=== PATIENT | female | born 1985 | race American Indian/Alaskan Native ===

== ENCOUNTER 2019-05-09 10:09 | Emergency (ER) | payer OTHER ==
[2019-05-09] MEDS ORDERED: NACL 0.9% 1000 ML 2,000 ML IV ONE (10:38)
[2019-05-09] MEDS ORDERED: ATIVAN IV ONE (10:38)
--- NOTE | 2019-05-09 10:39 | Emergency Department Report ---
ED General Adult HPI - General Chief complaint: Psych Stated complaint: PSYCH Time Seen by Provider: 05/09/19 10:28 Source: EMS (ems notes not available at time of chart dictation), old records reviewed Mode of arrival: Stretcher Limitations: Other (she is nonverbal. The patient is catatonic.) - History of Present Illness Initial comments: This is a 33-year-old female. This patient is not known to this provider previously. The patient has a history of psychiatric disease. The patient is sent to the ER for evaluation of not eating and drinking. In the emergency room, the patient is awake, but not answering questions, and not following commands. She is fluttering her eyelids, and closes her eyes tightly when we attempt to examine them. The patient will not describe qualitative nature of her symptoms, and she will not answer open-ended or closing the questions. Aspirin close documentation, she is refusing to eat or drink, and apparently leaning forward. Medications are reviewed, and appreciated. There is no documented history of trauma. Patient may also have a history of thyroid disease. -: unknown Radiation: other Quality: other Consistency: other Improves with: other Worsens with: other Associated Symptoms: other - Related Data Allergies Allergy/AdvReac Type Severity Reaction Status Date / Time No Known Allergies Allergy Verified 05/09/19 10:18 ED Review of Systems ROS: Stated complaint: PSYCH Other details as noted in HPI Comment: Unobtainable due to pts medical conditions ED Past Medical Hx - Past Medical History Previous Medical History?: Yes Hx Hypertension: Yes Hx Diabetes: Yes - Social History Smoking Status: Unknown if ever smoked ED Physical Exam - General Limitations: Other (the patient will not answer commands. The patient will not answer questions. The patient is fluttering her eyelids, and closes eyelids tightly when eyes are tended to be examined.) General appearance: in no apparent distress - Head Head exam: Present: atraumatic, normocephalic - ENT ENT exam: Present: normal external ear exam, other (normal external anatomy) - Neck Neck exam: Present: normal inspection. Absent: tenderness, meningismus - Respiratory Respiratory exam: Present: normal lung sounds bilaterally. Absent: respiratory distress - Cardiovascular Cardiovascular Exam: Present: normal rhythm, tachycardia, normal heart sounds. Absent: systolic murmur, diastolic murmur, rubs, gallop - GI/Abdominal GI/Abdominal exam: Present: soft. Absent: distended, tenderness, guarding, rebound, rigid, pulsatile mass - Extremities Exam Extremities exam: Present: normal inspection (patient is actively plantar flexin g her feet. Patient actively resists range of motion in the arms and shoulders, and is noted to be pulling back. There is no clonus, there is no hyperreflexia, and the muscular compartments are soft), other (2+ pulses noted in the bilateral upper, lower extremities. Compartments soft. No long bony tenderness. The pelvis is stable.). Absent: pedal edema, joint swelling, calf tenderness - Back Exam Back exam: Absent: tenderness, CVA tenderness (R), CVA tenderness (L), paraspinal tenderness, vertebral tenderness - Neurological Exam Neurological exam: Present: altered (A she is catatonic. The patient has no facial droop.), other (the patient is plantar flexing both feet. She pulls back with 5 out of 5 strength in her bilateral upper extremities. When we sit the patient up, she continues to keep herself sat up, without moving, and without truncal instability. When arms lifted above the head, the patient allows them to gently rest on the stretcher or abdomen, avoiding above the clavicles.) - Psychiatric Psychiatric exam: Present: other (patient is nonverbal) - Skin Skin exam: Present: warm, dry, intact, normal color. Absent: rash ED Course Vital Signs 05/09/19 05/09/19 05/09/19 10:18 10:40 11:00 Temperature 97.6 F Pulse Rate 106 H 103 H 112 H Respiratory 16 15 19 Rate Blood Pressure 119/77 126/81 O2 Sat by Pulse 100 100 100 Oximetry 05/09/19 05/09/19 05/09/19 11:30 11:34 11:37 Temperature 98.4 F Pulse Rate 109 H Respiratory 17 16 Rate Blood Pressure 120/73 O2 Sat by Pulse 100 Oximetry 05/09/19 05/09/19 05/09/19 12:15 12:30 13:01 Temperature Pulse Rate 90 102 H Respiratory 20 Rate Blood Pressure 120/73 108/71 122/85 O2 Sat by Pulse 100 100 Oximetry 05/09/19 05/09/19 13:30 14:00 Temperature Pulse Rate 101 H 110 H Respiratory 18 16 Rate Blood Pressure 117/70 107/75 O2 Sat by Pulse 100 99 Oximetry - Reevaluation(s) Reevaluation #1: 05/09/19 11:46 Differential diagnosis, including but not limited to: Thyroid derangement, psychosis, conversion disorder, dehydration Assessment and plan: 33-year-old female who is sent to the ER for not eating and drinking. Neurologic exam shows active plantar flexion, no clonus, no hyperreflexia, soft muscular compartments, patient is actively resisting ocular examination by closing her eyes tightly, she is able to control range of motion with her arms, and actively pulls back with her arms when examined, symptoms are most likely psychiatric in nature. She will be given IV fluids, trial dose of Ativan, screening laboratory studies, EKG, urinalysis requested. Noncontrast CT scan of the brain is requested. We will reassess after data points. heart rate 93 bpm patient in no acute distress Reevaluation #2: 05/09/19 12:38 Patient resting comfortably, and in no acute distress. Laboratory studies reviewed and appreciated. Elevated free T4 is minimally abnormal, and is a normal TSH. Patient has not demonstrated any objective medical condition at this time that requires hospitalization. I suspect her underlying psychosis is the primary contributing factor to her refusal to eat and drink, and therefore, her psychiatric disease will need to be optimized. The patient at this point time does not meet criteria for hospitalization. Heart rate at 76 bpm. Explained to patient that she'll need to start eating and drinking. Reevaluation #3: 05/09/19 12:47 Patient observed by myself and nursing staff to be drinking water without difficulty. ED Medical Decision Making - Lab Data Result diagrams: 05/09/19 10:59 05/09/19 10:59 Vital Signs 05/09/19 05/09/19 05/09/19 10:18 10:40 11:00 Temperature 97.6 F Pulse Rate 106 H 103 H 112 H Respiratory 16 15 19 Rate Blood Pressure 119/77 126/81 O2 Sat by Pulse 100 100 100 Oximetry 05/09/19 05/09/19 05/09/19 11:30 11:34 11:37 Temperature 98.4 F Pulse Rate 109 H Respiratory 17 16 Rate Blood Pressure 120/73 O2 Sat by Pulse 100 Oximetry Lab Results 05/09/19 05/09/19 05/09/19 Range/Units 10:37 10:59 10:59 WBC 6.3 (4.5-11.0) K/mm3 RBC 4.73 (3.65-5.03) M/mm3 Hgb 14.5 H (10.1-14.3) gm/dl Hct 42.5 (30.3-42.9) % MCV 90 (79-97) fl MCH 31 (28-32) pg MCHC 34 (30-34) % RDW 12.7 L (13.2-15.2) % Plt Count 179 (140-440) K/mm3 Sodium 137 (137-145) mmol/L Potassium 3.9 (3.6-5.0) mmol/L Chloride 98.5 (98-107) mmol/L Carbon Dioxide 22 (22-30) mmol/L Anion Gap 20 mmol/L BUN 22 H (7-17) mg/dL Creatinine 0.9 (0.7-1.2) mg/dL Estimated GFR > 60 ml/min BUN/Creatinine Ratio 24 % Glucose 102 H (65-100) mg/dL POC Glucose 78 (70-105) Calcium 9.4 (8.4-10.2) mg/dL Magnesium 1.90 (1.7-2.3) mg/dL Total Creatine Kinase 59 (30-135) units/L TSH (0.270-4.200) mlU/mL Free T4 (0.76-1.46) ng/dL HCG, Quant (0-4) mIU/mL Urine Color (Yellow) Urine Turbidity (Clear) Urine pH (5.0-7.0) Ur Specific [place]tt (1.003-1.030) Urine Protein (Negative) mg/dL Urine Glucose (UA) (Negative) mg/dL Urine Ketones (Negative) mg/dL Urine Blood (Negative) Urine Nitrite (Negative) Urine Bilirubin (Negative) Urine Urobilinogen (<2.0) mg/dL Ur Leukocyte Esterase (Negative) Urine WBC (Auto) (0.0-6.0) /HPF Urine RBC (Auto) (0.0-6.0) /HPF U Epithel Cells (Auto) (0-13.0) /HPF Urine Mucus /HPF Salicylates (2.8-20.0) mg/dL Acetaminophen (10.0-30.0) ug/mL Plasma/Serum Alcohol (0-0.07) % 05/09/19 05/09/19 05/09/19 Range/Units 10:59 10:59 10:59 WBC (4.5-11.0) K/mm3 RBC (3.65-5.03) M/mm3 Hgb (10.1-14.3) gm/dl Hct (30.3-42.9) % MCV (79-97) fl MCH (28-32) pg MCHC (30-34) % RDW (13.2-15.2) % Plt Count (140-440) K/mm3 Sodium (137-145) mmol/L Potassium (3.6-5.0) mmol/L Chloride (98-107) mmol/L Carbon Dioxide (22-30) mmol/L Anion Gap mmol/L BUN (7-17) mg/dL Creatinine (0.7-1.2) mg/dL Estimated GFR ml/min BUN/Creatinine Ratio % Glucose (65-100) mg/dL POC Glucose (70-105) Calcium (8.4-10.2) mg/dL Magnesium (1.7-2.3) mg/dL Total Creatine Kinase (30-135) units/L TSH 2.190 (0.270-4.200) mlU/mL Free T4 1.57 H (0.76-1.46) ng/dL HCG, Quant < 2 (0-4) mIU/mL Urine Color (Yellow) Urine Turbidity (Clear) Urine pH (5.0-7.0) Ur Specific Triplett (1.003-1.030) Urine Protein (Negative) mg/dL Urine Glucose (UA) (Negative) mg/dL Urine Ketones (Negative) mg/dL Urine Blood (Negative) Urine Nitrite (Negative) Urine Bilirubin (Negative) Urine Urobilinogen (<2.0) mg/dL Ur Leukocyte Esterase (Negative) Urine WBC (Auto) (0.0-6.0) /HPF Urine RBC (Auto) (0.0-6.0) /HPF U Epithel Cells (Auto) (0-13.0) /HPF Urine Mucus /HPF Salicylates (2.8-20.0) mg/dL Acetaminophen (10.0-30.0) ug/mL Plasma/Serum Alcohol (0-0.07) % 05/09/19 05/09/19 05/09/19 Range/Units 10:59 10:59 10:59 WBC (4.5-11.0) K/mm3 RBC (3.65-5.03) M/mm3 Hgb (10.1-14.3) gm/dl Hct (30.3-42.9) % MCV (79-97) fl MCH (28-32) pg MCHC (30-34) % RDW (13.2-15.2) % Plt Count (140-440) K/mm3 Sodium (137-145) mmol/L Potassium (3.6-5.0) mmol/L Chloride (98-107) mmol/L Carbon Dioxide (22-30) mmol/L Anion Gap mmol/L BUN (7-17) mg/dL Creatinine (0.7-1.2) mg/dL Estimated GFR ml/min BUN/Creatinine Ratio % Glucose (65-100) mg/dL POC Glucose (70-105) Calcium (8.4-10.2) mg/dL Magnesium (1.7-2.3) mg/dL Total Creatine Kinase (30-135) units/L TSH (0.270-4.200) mlU/mL Free T4 (0.76-1.46) ng/dL HCG, Quant (0-4) mIU/mL Urine Color (Yellow) Urine Turbidity (Clear) Urine pH (5.0-7.0) Ur Specific [place]tt (1.003-1.030) Urine Protein (Negative) mg/dL Urine Glucose (UA) (Negative) mg/dL Urine Ketones (Negative) mg/dL Urine Blood (Negative) Urine Nitrite (Negative) Urine Bilirubin (Negative) Urine Urobilinogen (<2.0) mg/dL Ur Leukocyte Esterase (Negative) Urine WBC (Auto) (0.0-6.0) /HPF Urine RBC (Auto) (0.0-6.0) /HPF U Epithel Cells (Auto) (0-13.0) /HPF Urine Mucus /HPF Salicylates < 0.3 L (2.8-20.0) mg/dL Acetaminophen < 5.0 L (10.0-30.0) ug/mL Plasma/Serum Alcohol < 0.01 (0-0.07) % 05/09/19 Range/Units 11:41 WBC (4.5-11.0) K/mm3 RBC (3.65-5.03) M/mm3 Hgb (10.1-14.3) gm/dl Hct (30.3-42.9) % MCV (79-97) fl MCH (28-32) pg MCHC (30-34) % RDW (13.2-15.2) % Plt Count (140-440) K/mm3 Sodium (137-145) mmol/L Potassium (3.6-5.0) mmol/L Chloride (98-107) mmol/L Carbon Dioxide (22-30) mmol/L Anion Gap mmol/L BUN (7-17) mg/dL Creatinine (0.7-1.2) mg/dL Estimated GFR ml/min BUN/Creatinine Ratio % Glucose (65-100) mg/dL POC Glucose (70-105) Calcium (8.4-10.2) mg/dL Magnesium (1.7-2.3) mg/dL Total Creatine Kinase (30-135) units/L TSH (0.270-4.200) mlU/mL Free T4 (0.76-1.46) ng/dL HCG, Quant (0-4) mIU/mL Urine Color Alessia (Yellow) Urine Turbidity Clear (Clear) Urine pH 6.0 (5.0-7.0) Ur Specific Triplett 1.032 H (1.003-1.030) Urine Protein 30 mg/dl (Negative) mg/dL Urine Glucose (UA) Neg (Negative) mg/dL Urine Ketones 80 (Negative) mg/dL Urine Blood Neg (Negative) Urine Nitrite Neg (Negative) Urine Bilirubin Neg (Negative) Urine Urobilinogen 2.0 (<2.0) mg/dL Ur Leukocyte Esterase Neg (Negative) Urine WBC (Auto) 2.0 (0.0-6.0) /HPF Urine RBC (Auto) 4.0 (0.0-6.0) /HPF U Epithel Cells (Auto) 1.0 (0-13.0) /HPF Urine Mucus Few /HPF Salicylates (2.8-20.0) mg/dL Acetaminophen (10.0-30.0) ug/mL Plasma/Serum Alcohol (0-0.07) % - EKG Data -: EKG Interpreted by Sc EKG shows normal: sinus rhythm Rate: normal - EKG Data When compared to previous EKG there are: previous EKG unavailable 05/09/19 12:39 This is a normal sinus rhythm, 76 bpm, normal axis, QTC within normal limits, not endorsing chest pain, the EKG is not consistent with ST elevation myocardial infarction. - Radiology Data Radiology results: pending, report reviewed, image reviewed Print Report Referring Physician: LISA CARTAGENA Patient Name: SAMANTHA SALAS Date of : 1985 Sex: Female Report Date: 2019-05-09 Report Status: Finalized Findings [facility] [address] [place] [address] Cat Scan Report Signed Patient: SAMANTHA SALAS MR#: [id number] 95 : 1985 Acct:[id number] Age/Sex: 33 / F ADM Date: 05/09/19 Loc: ED Attending Dr: Ordering Physician: LISA CARTAGENA MD Date of Service: 05/09/19 Procedure(s): CT head/brain wo con Accession Number(s): [id number] cc: LISA CARTAGENA MD CT head/brain wo con INDICATION: catatonia not eating, pt is nonresponsive . TECHNIQUE: Routine CT head without contrast. Sagittal and coronal reformatted images were obtained. All CT scans at this location are performed using CT dose reduction for ALARA by means of automated exposure control. Please note these images are obtained at the L4 slice helical CT scanner. In addition, very thin section (0.625 mm thickness) images resulting in poor [id number]. This is a limited CT scan. COMPARISON: None. FINDINGS: BRAIN / INTRACRANIAL CONTENTS: No acute hemorrhage, mass effect, midline shift, hydrocephalus. Do not see large territorial infarction. However, because of the poor onupxz-ts-uhwbr, smaller lesions could not be excluded. No chronic infarct or focal atrophy. Normal brain volume and ventricular/sulcal size for age. CRANIOCERVICAL JUNCTION: No significant abnormality. ORBITS: No significant abnormality of visualized orbits. SINUSES / MASTOIDS: No significant abnormality of the visualized paranasal sinuses or mastoid air cells. ADDITIONAL FINDINGS: None. IMPRESSION: Limited CT scan due to poor ifdrwj-mn-brsvg; I do not see large space taking lesion or hemorrhage or subdural hematoma midline shift. Signer Name: Dev Cano MD Signed: 05/09/2019 1:13 PM Workstation Name: [id number] Transcribed By: BS Dictated By: Dev Sanches MD Electronically Authenticated By: Dev Sanches MD Signed Date/Time: 05/09/19 1313 Critical care attestation.: If time is entered above; I have spent that time in minutes in the direct care of this critically ill patient, excluding procedure time. ED Disposition Clinical Impression: Psychosis Disposition: DC/TX-65 PSY HOSP/PSY UNIT Is pt being admited?: No Does the pt Need Aspirin: No Condition: Stable Additional Instructions: Continue current outpatient medications. Patient's laboratory studies, history, physical examination did not demonstrate any condition that would require hospitalization. Patient found to be borderline hyperglycemic in the ER, with a serum glucose in the low 100s. The patient at this point in time does not meet criteria for hospitalization, and the patient was not found to have an acute medical condition that would preclude psychiatric placement. The patient will likely benefit from having her underlying psychosis optimized, as this is the most likely contributing factor to her underlying presentation. Please return to the emergency room right away with new, worsening or different symptoms, or symptoms are not present on the initial emergency room evaluation. Please follow up with a medical physician within the next 7-10 days. Follow-up with your psychiatrist within the next 24 hours. Referrals: PARISA WAGNER MD [Primary Care Provider] - 3-5 Days
[2019-05-09 11:38] LABS: Hematocrit 42.5 % (30.3-42.9); Hemoglobin 14.5 gm/dl (10.1-14.3); Mean Corpuscular HGB Conc 34 % (30-34); Mean Corpuscular Hemoglobin 31 pg (28-32); Mean Corpuscular Volume 90 fl (79-97); Platelet Count 179 K/mm3 (140-440); Red Blood Count 4.73 M/mm3 (3.65-5.03); Red Cell Distribution Width 12.7 % (13.2-15.2)
[2019-05-09 11:47] LABS: BUN/Creatinine Ratio 24; Blood Urea Nitrogen 22 mg/dL (7-17); Calcium 9.4 mg/dL (8.4-10.2); Hemolysis Index 15
[2019-05-09 12:19] LABS: Bilirubin,Urine NEG (Negative); Blood,Urine NEG (Negative); Color,Urine Amber (Yellow); Mucus,Urine FEW /HPF
[2019-05-09 12:40] LABS: Amphetamine Screen,Urine PRESUMPTIVE NEGATIVE; Benzodiazepines Screen,Urine PRESUMPTIVE NEGATIVE; Cannabinoid Screen,Urine PRESUMPTIVE NEGATIVE; Cocaine Screen,Urine PRESUMPTIVE NEGATIVE; Methadone Screen,Urine PRESUMPTIVE NEGATIVE; Opiate Screen,Urine PRESUMPTIVE NEGATIVE
--- NOTE | 2019-05-09 13:18 | Cat Scan Report ---
CT head/brain wo con INDICATION: catatonia not eating, pt is nonresponsive . TECHNIQUE: Routine CT head without contrast. Sagittal and coronal reformatted images were obtained. A ll CT scans at this location are performed using CT dose reduction for ALARA by means of automated ex posure control. Please note these images are obtained at the L4 slice helical CT scanner. In addition , very thin section (0.625 mm thickness) images resulting in poor eysmen-uq-khexb. This is a limited CT scan. COMPARISON: None. FINDINGS: BRAIN / INTRACRANIAL CONTENTS: No acute hemorrhage, mass effect, midline shift, hydrocephalus. Do not see large territorial infarction. However, because of the poor pgxnap-zl-xxhff, smaller lesions coul d not be excluded. No chronic infarct or focal atrophy. Normal brain volume and ventricular/sulcal si ze for age. CRANIOCERVICAL JUNCTION: No significant abnormality. ORBITS: No significant abnormality of visualized orbits. SINUSES / MASTOIDS: No significant abnormality of the visualized paranasal sinuses or mastoid air russell ls. ADDITIONAL FINDINGS: None. IMPRESSION: Limited CT scan due to poor gcsvhw-if-lvwrz; I do not see large space taking lesion or hemorrhage or subdural hematoma midline shift. Signer Name: Dev Cano MD Signed: 05/09/2019 1:13 PM Workstation Name: [id number]
[2019-05-09 15:03] VITALS: BP 109/64
== END 2019-05-09 15:10 ==
LOC: ED 10:09
DX: F23 Brief psychotic disorder (principal); Z79.899 Other long term (current) drug therapy; I10 Essential (primary) hypertension; E11.9 Type 2 diabetes mellitus without complications
CPT/HCPCS: 36415; 70450; 80048; 80307; 81001; 82550; 82962; 83735; 84439; 84443; 84702; 85027; 87086; 93005; 93010; 96374; 99285; J2060; J7030; 80320; G0480

== ENCOUNTER 2019-05-13 18:47 | Emergency (ER) | payer OTHER ==
[2019-05-13] MEDS ORDERED: NACL 0.9% 1000 ML 1,000 ML IV ONE (19:49)
--- NOTE | 2019-05-13 20:04 | Emergency Department Report ---
HPI - General Chief Complaint: Medical Clearance Time Seen by Provider: 05/13/19 19:42 - HPI HPI: Room 19 The patient is a 33-year-old female presenting with a chief complaint of not eating or drinking. The patient's states patient stopped eating 04/23/2019. He states the patient stopped drinking 05/05/2019 and subsequently took her to the hospital 05/07/2019. Patient subsequently transferred to the psychiatric facility report to be catatonic. Patient continued to not eat or drink for several days. Staff states today the patient drank 2 cups of juice and one cup of water however the patient had dry mucous membranes and was subsequently then to the ED for evaluation. When asked how she is feeling the patient replies "I feel better talking to you." When asked if anything is bothering her she states no. Location: [See above] Duration: [See above] Quality: [See above] Severity: [See above] Modifying factors: [see above] Context: [see above] Mode of transportation: [not driving] ED Past Medical Hx - Past Medical History Previous Medical History?: Yes Hx Psychiatric Treatment: Yes (bipolar disorder with psychotic features) - Surgical History Past Surgical History?: No Additional Surgical History: 2 - Family History Family history: no significant - Social History Smoking Status: Never Smoker Substance Use Type: None (denies illicit drug use), Alcohol (occasional) ED Review of Systems ROS: Stated complaint: DEHYDRATION/MH EVAL Other details as noted in HPI Constitutional: no symptoms reported Eyes: denies: eye pain ENT: denies: throat pain Respiratory: no symptoms reported Cardiovascular: denies: chest pain Endocrine: no symptoms reported Gastrointestinal: denies: abdominal pain Genitourinary: denies: dysuria Musculoskeletal: denies: back pain Neurological: denies: headache Physical Exam - Physical Exam Vital Signs: Vital Signs 05/13/19 19:12 Temperature 98.6 F Pulse Rate 117 H Respiratory 18 Rate Blood Pressure 110/66 [Left] O2 Sat by Pulse 99 Oximetry Vital Signs 05/13/19 05/13/19 05/13/19 19:12 19:15 19:30 Temperature 98.6 F Pulse Rate 117 H 116 H 111 H Respiratory 21 21 20 Rate Blood Pressure 119/65 113/67 Blood Pressure 110/66 [Left] O2 Sat by Pulse 99 99 99 Oximetry 07/05/13/19 05/13/19 19:45 20:00 20:16 Temperature Pulse Rate 123 H 120 H 120 H Respiratory 25 H 22 25 H Rate Blood Pressure 126/72 122/81 126/72 Blood Pressure [Left] O2 Sat by Pulse 100 100 100 Oximetry 05/13/19 05/13/19 05/13/19 20:30 20:45 21:00 Temperature Pulse Rate 112 H 97 H 98 H Respiratory 19 18 18 Rate Blood Pressure 129/65 120/62 113/55 Blood Pressure [Left] O2 Sat by Pulse 100 100 99 Oximetry 05/13/19 05/13/19 05/13/19 21:15 21:30 21:45 Temperature Pulse Rate 98 H 99 H 93 H Respiratory 18 13 18 Rate Blood Pressure 103/52 127/62 112/69 Blood Pressure [Left] O2 Sat by Pulse 99 100 100 Oximetry Physical Exam: GENERAL: The patient is well-developed female lying on stretcher not appearing to be in acute distress HEENT: Normocephalic. Atraumatic. Extraocular motions are intact. Patient has dry mucous membranes. NECK: Supple. Trachea midline CHEST/LUNGS: Clear to auscultation. There is no respiratory distress noted. HEART/CARDIOVASCULAR: Regular. There is tachycardia. There is no gallop rub or murmur. ABDOMEN: Abdomen is soft, nontender. Patient has normal bowel sounds. There is no abdominal distention. SKIN: There is no rash. There is no edema. There is no diaphoresis. NEURO: The patient is awake, alert, and oriented. The patient is cooperative. The patient has normal speech MUSCULOSKELETAL: There is no evidence of acute injury. ED Course Vital Signs 05/13/19 19:12 Temperature 98.6 F Pulse Rate 117 H Respiratory 18 Rate Blood Pressure 110/66 [Left] O2 Sat by Pulse 99 Oximetry ED Medical Decision Making - Lab Data Result diagrams: 05/13/19 20:14 05/13/19 20:14 Laboratory Tests 05/13/19 05/13/19 05/13/19 20:14 20:14 20:14 WBC RBC Hgb Hct MCV MCH MCHC RDW Plt Count Lymph % (Auto) [place] % (Auto) Eos % (Auto) Baso % (Auto) Lymph # [place] # Eos # Baso # Seg Neutrophils % Seg Neutrophils # VBG pH Sodium 140 Potassium 3.6 Chloride 104.0 Carbon Dioxide 26 Anion Gap 14 BUN 12 Creatinine 0.9 Estimated GFR > 60 BUN/Creatinine Ratio 13 Glucose 113 H Calcium 7.8 L D Total Bilirubin Direct Bilirubin Indirect Bilirubin AST ALT Alkaline Phosphatase Total Protein Albumin Albumin/Globulin Ratio HCG, Qual Salicylates < 0.3 L Acetaminophen < 5.0 L Plasma/Serum Alcohol 05/13/19 05/13/19 05/13/19 20:14 20:14 20:14 WBC 8.9 RBC 3.52 L Hgb 11.1 Hct 32.2 MCV 91 MCH 32 MCHC 35 H RDW 12.7 L Plt Count 146 Lymph % (Auto) 13.6 [place] % (Auto) 12.4 H Eos % (Auto) 0.3 Baso % (Auto) 0.4 Lymph # 1.2 [place] # 1.1 H Eos # 0.0 Baso # 0.0 Seg Neutrophils % 73.3 H Seg Neutrophils # 6.5 VBG pH Sodium Potassium Chloride Carbon Dioxide Anion Gap BUN Creatinine Estimated GFR BUN/Creatinine Ratio Glucose Calcium Total Bilirubin Direct Bilirubin Indirect Bilirubin AST ALT Alkaline Phosphatase Total Protein Albumin Albumin/Globulin Ratio HCG, Qual Negative Salicylates Acetaminophen Plasma/Serum Alcohol < 0.01 05/13/19 05/13/19 20:14 20:58 WBC RBC Hgb Hct MCV MCH MCHC RDW Plt Count Lymph % (Auto) [place] % (Auto) Eos % (Auto) Baso % (Auto) Lymph # [place] # Eos # Baso # Seg Neutrophils % Seg Neutrophils # VBG pH 7.390 Sodium Potassium Chloride Carbon Dioxide Anion Gap BUN Creatinine Estimated GFR BUN/Creatinine Ratio Glucose Calcium Total Bilirubin 0.20 Direct Bilirubin < 0.2 Indirect Bilirubin 0.0 AST 18 ALT 12 Alkaline Phosphatase 57 Total Protein 6.0 L Albumin 3.1 L Albumin/Globulin Ratio 1.1 HCG, Qual Salicylates Acetaminophen Plasma/Serum Alcohol - Differential Diagnosis dehydration Critical care attestation.: If time is entered above; I have spent that time in minutes in the direct care of this critically ill patient, excluding procedure time. ED Disposition Clinical Impression: Dehydration Disposition: DC/TX-65 PSY HOSP/PSY UNIT Is pt being admited?: No Does the pt Need Aspirin: No Condition: Stable Additional Instructions: Return to the emergency department immediately should you develop worsening symptoms, fever, inability to tolerate food or liquid or any other concerns. Referrals: GILBERTO IRAHETA MD [Primary Care Provider] - 3-5 Days Time of Disposition: 21:54 (d/c back to psych facility)
[2019-05-13 20:45] LABS: Basophils % (Auto) 0.4 % (0.0-1.8); Eosinophils % (Auto) 0.3 % (0.0-4.3); Hematocrit 32.2 % (30.3-42.9); Hemoglobin 11.1 gm/dl (10.1-14.3); Lymphocytes # (Auto) 1.2 K/mm3 (1.2-5.4); Lymphocytes % (Auto) 13.6 % (13.4-35.0); Mean Corpuscular HGB Conc 35 % (30-34); Mean Corpuscular Volume 91 fl (79-97); Monocytes # (Auto) 1.1 K/mm3 (0.0-0.8); Monocytes % (Auto) 12.4 % (0.0-7.3); Platelet Count 146 K/mm3 (140-440); Red Blood Count 3.52 M/mm3 (3.65-5.03); Red Cell Distribution Width 12.7 % (13.2-15.2)
[2019-05-13 20:54] LABS: BUN/Creatinine Ratio 13; Blood Urea Nitrogen 12 mg/dL (7-17); Calcium 7.8 mg/dL (8.4-10.2); Hemolysis Index 5
[2019-05-13 21:12] LABS: Alanine Aminotransferase 12 units/L (7-56); Albumin 3.1 g/dL (3.9-5)
[2019-05-13 21:17] LABS: Bilirubin,Direct < 0.2 mg/dL (0-0.2)
[2019-05-14 00:15] VITALS: BP 113/69
== END 2019-05-14 00:05 ==
LOC: ED 18:47
DX: E86.0 Dehydration (principal); F31.9 Bipolar disorder, unspecified
CPT/HCPCS: 36415; 80048; 80076; 82805; 84703; 85025; 96360; 99284; J7030; 80320; G0480